=== PATIENT | female | born 1970 | race Caucasian/White ===

== ENCOUNTER 2017-08-23 04:14 | Emergency (ER) | payer MEDICAID ==
[~2017-08-23] VITALS: Ht 165.1 cm; Wt 71.7 kg
[2017-08-23 04:15] VITALS: BP_SYST 101
[2017-08-23] MEDS ORDERED: IBUPROFEN 800 MG TABLET PO ONE (05:00)
[2017-08-23 06:04] VITALS: BP_SYST 101
== END 2017-08-23 06:04 | disposition home or self-care (01) ==
LOC: SED 04:14
DX: S93.401A Sprain of unspecified ligament of right ankle, initial encounter (principal); X58.XXXA Exposure to other specified factors, initial encounter; Y93.89 Activity, other specified; Y92.89 Other specified places as the place of occurrence of the external cause; Y99.8 Other external cause status
CPT/HCPCS: 99284

== ENCOUNTER 2018-12-29 12:43 | Inpatient (IN) | payer MEDICAID ==
[~2018-12-29] VITALS: Ht 165.1 cm; Wt 77.1 kg
[2018-12-29 12:43] VITALS: BP_SYST 136
[2018-12-29] MEDS ORDERED: ONDANSETRON HCL 4 MG/2 ML VIAL IVP ONE ×2 (13:30→18:00)
[2018-12-29] MEDS ORDERED: NACL 0.9% 1,000 ML IV ONE (13:30)
[2018-12-29] MEDS ORDERED: KETOROLAC TROMETHAMINE 30 MG VIAL IVP ONE ×2 (13:30→18:25)
[2018-12-29 13:57] LABS: BASOPHILS # (AUTO) 0.1 K/uL (0.0-0.2); BASOPHILS % (AUTO) 0.4 % (0.0-2.0); EOSINOPHILS # (AUTO) 0.1 K/uL (0.0-0.4); EOSINOPHILS % (AUTO) 0.3 % (0.0-4.0); HEMATOCRIT 37.4 % (36-48); HEMOGLOBIN 12.1 g/dL (12.0-16.0); LYMPHOCYTES # (AUTO) 0.8 K/uL (1.0-5.5); LYMPHOCYTES % (AUTO) 4.3 % (20.5-51.5); MEAN CORPUSCULAR HEMOGLOBIN 27 pg (27-31); MEAN CORPUSCULAR HGB CONC 33 % (32-36); MEAN CORPUSCULAR VOLUME 82 fL (79.0-98.0); MONOCYTES # (AUTO) 0.5 K/uL (0.0-1.0); MONOCYTES % (AUTO) 2.9 % (1.7-9.3); NEUTROPHILS # (AUTO) 16.7 K/uL (1.8-7.7); NEUTROPHILS % (AUTO) 92.1 % (40.0-70.0); PLATELET COUNT (AUTO) 325 K/uL (130-430); RED BLOOD CELL COUNT(AUTO) 4.55 MIL/uL (4.2-6.2); RED CELL DISTRIBUTION WIDTH 14.8 % (9.0-15.0); WHITE BLOOD COUNT (AUTO) 18.1 K/uL (4.8-10.8)
[2018-12-29 14:11] LABS: CALCIUM 9.8 mg/dL (8.4-11.0); CREATININE 0.81 mg/dL (0.55-1.30); POTASSIUM 3.1 mmol/L (3.5-5.1)
[2018-12-29 14:13] LABS: ALBUMIN 3.8 g/dL (3.4-4.8); TOTAL BILIRUBIN 0.6 mg/dL (0.0-1.0)
[2018-12-29 15:14] LABS: BILIRUBIN,URINE NEGATIVE (NEGATIVE); BLOOD, URINE 2+ (NEGATIVE); CLARITY/URINE HAZY (CLEAR); COLOR,URINE YELLOW (YELLOW); GLUCOSE,URINE NEGATIVE (NEGATIVE); KETONES,URINE 2+ (NEGATIVE); LEUKOCYTE ESTERASE ,URINE TRACE (NEGATIVE); NITRITE, URINE NEGATIVE (NEGATIVE); PH,URINE 6.5 (5.0-8.0); PROTEIN URINE NEGATIVE (NEGATIVE); UROBILINOGEN,URINE 0.2 (0.2-1.0)
[2018-12-29 15:26] LABS: BACTERIA,URINE MODERATE /HPF (None Seen); WBC,URINE 0-3 /HPF (0-3)
[2018-12-29 15:27] LABS: MUCUS,URINE None Seen /LPF (None Seen)
[2018-12-29] MEDS ORDERED: cefOXitin SODIUM 1 GM in D5W 50 ML IV ONE (16:30)
[2018-12-29] MEDS ORDERED: MORPHINE 4 MG/ML INJ. SYRINGE IVP ONE (18:00)
[2018-12-29] MEDS ORDERED: NS 1000 ML IV.SOLN IV ONE (18:25)
[2018-12-29] MEDS ORDERED: PHENYLEPHRINE HCL 10 MG/ML VIAL (NEOSYNEPHRINE) IV ONE (18:25)
[2018-12-29] MEDS ORDERED: MIDAZOLAM HCL 5 MG/5 ML VIAL IVP ONE (18:25)
[2018-12-29] MEDS ORDERED: SEVOFLURANE 15 MIN GAS INH ONE (18:25)
[2018-12-29] MEDS ORDERED: ROCURONIUM BROMIDE 10 MG/ML (ZEMURON) IV ONE (18:25)
[2018-12-29] MEDS ORDERED: WATER FOR IRRIGATION,STERILE 1,000 ML IRRIG.SOLN IR ONE (18:25)
[2018-12-29] MEDS ORDERED: LIDOCAINE 2%, 20 ML MDV INJ ONE (18:25)
[2018-12-29] MEDS ORDERED: PROPOFOL 200MG/ 20ML VIAL (DIPRIVAN) IV ONE (18:25)
[2018-12-29] MEDS ORDERED: GLYCOPYRROLATE 0.2 MG/ML VIAL IJ ONE (18:25)
[2018-12-29] MEDS ORDERED: fentaNYL CITRATE/PF 100 MCG/2 ML AMP IVP ONE (18:25)
[2018-12-29] MEDS ORDERED: LR 1,000 ML IV.SOLN IV ONE ×2 (18:25)
[2018-12-29] MEDS: NACL 0.9% 1,000 ML IV SCH (19:47)
[2018-12-29] MEDS: CEFAZOLIN 1 GM IVPB PREMIX 50 ML IV SCH (20:00)
[2018-12-29] MEDS ORDERED: ONDANSETRON HCL 4 MG/2 ML VIAL IVP PRN ×2 (20:00→21:15)
[2018-12-29] MEDS ORDERED: HYDROmorphone 1 MG INJ. 1 MG/ML AMPUL IVP PRN (20:00)
[2018-12-29] MEDS: metroNIDAZOLE 500 mg/NS 100 ML IV SCH (20:00)
[2018-12-29 21:12] VITALS: BP_SYST 100
[2018-12-29] MEDS ORDERED: PIPERACILLIN/TAZO 3.375 GM in NS 50 ML IV ONE (21:15)
[2018-12-29] MEDS ORDERED: POTASSIUM CHLORIDE 40 MEQ, LIDOCAINE JECT 2% PF 100 MG 50 MG in NS 250 ML IV ONE (21:15)
[2018-12-29] MEDS ORDERED: MORPHINE 4 MG/ML INJ. SYRINGE IVP PRN ×2 (21:15)
[2018-12-29] MEDS ORDERED: LR 1,000 ML IV ONE (21:15)
[2018-12-29] MEDS ORDERED: ACETAMINOPHEN 650 MG SUPP.RECT RC PRN (21:15)
[2018-12-29] MEDS ORDERED: KCL 40 mEq in 100 mL (PREMIX) 100 ML IV ONE (22:50)
[2018-12-29] MEDS ORDERED: LIDOCAINE JECT 2% PF 100 MG/5ML SYRINGE ONE (22:56)
[2018-12-29] MEDS ORDERED: CEFAZOLIN 1 GM IVPB PREMIX 100 ML IV ONE (23:01)
[2018-12-29] MEDS ORDERED: metroNIDAZOLE 500 mg/NS 200 ML IV ONE (23:01)
[2018-12-29] MEDS ORDERED: HYDROmorphone 1 MG INJ. 1 MG/ML AMPUL ONE (23:14)
[2018-12-29 23:25] VITALS: BP_SYST 104
[2018-12-29 23:36] VITALS: BP_SYST 104
[2018-12-30 00:31] VITALS: BP_SYST 108
[2018-12-30] MEDS ORDERED: PIPERACILLIN/TAZOBACTAM 3.375 GM/VIAL (ZOSYN) IV ONE (00:39)
[2018-12-30] MEDS: CEFAZOLIN 1 GM IVPB PREMIX 50 ML IV SCH (06:02)
[2018-12-30] MEDS: metroNIDAZOLE 500 mg/NS 100 ML IV SCH (06:04)
[2018-12-30 06:22] LABS: CALCIUM 8.1 mg/dL (8.4-11.0); CREATININE 0.67 mg/dL (0.55-1.30); POTASSIUM 3.8 mmol/L (3.5-5.1)
[2018-12-30 06:29] LABS: ALBUMIN 2.7 g/dL (3.4-4.8); TOTAL BILIRUBIN 0.7 mg/dL (0.0-1.0)
[2018-12-30 06:36] LABS: BASOPHILS % (AUTO) 0.3 % (0.0-2.0); EOSINOPHILS % (AUTO) 0.4 % (0.0-4.0); HEMATOCRIT 30.1 % (36-48); HEMOGLOBIN 9.8 g/dL (12.0-16.0); LYMPHOCYTES # (AUTO) 0.8 K/uL (1.0-5.5); LYMPHOCYTES % (AUTO) 7.5 % (20.5-51.5); MEAN CORPUSCULAR HEMOGLOBIN 27 pg (27-31); MEAN CORPUSCULAR HGB CONC 33 % (32-36); MEAN CORPUSCULAR VOLUME 83 fL (79.0-98.0); MONOCYTES # (AUTO) 0.7 K/uL (0.0-1.0); NEUTROPHILS # (AUTO) 9.3 K/uL (1.8-7.7); NEUTROPHILS % (AUTO) 85.8 % (40.0-70.0); PLATELET COUNT (AUTO) 221 K/uL (130-430); RED BLOOD CELL COUNT(AUTO) 3.64 MIL/uL (4.2-6.2); WHITE BLOOD COUNT (AUTO) 10.8 K/uL (4.8-10.8)
[2018-12-30 08:00] VITALS: BP_SYST 100
[2018-12-30] MEDS: ACETAMINOPHEN 325 MG TABLET PO PRN ×2 (10:52→18:01)
[2018-12-30] MEDS: NACL 0.9% 1,000 ML IV SCH ×2 (11:11→14:54)
[2018-12-30] MEDS ORDERED: AMOX-426 PO (13:26)
[2018-12-30] MEDS ORDERED: L.RH1CAP PO (13:27)
[2018-12-30 14:05] VITALS: BP_SYST 104
[2018-12-30 16:05] VITALS: BP_SYST 94
[2018-12-30 16:16] VITALS: BP_SYST 99
[2018-12-30 16:18] VITALS: BP_SYST 99
[2018-12-31 04:19] LABS: CHLAMYDIA TRACHOMATIS NAA Negative (Negative); NEISSERIA GONORRHOEAE NAA Negative (Negative)
== END 2018-12-30 21:27 | disposition home or self-care (01) | DRG 710 ==
LOC: SED 12:43 → SMU 21:13
PROVIDERS: ADMIT Internal Medicine; ATTEND Internal Medicine
PROC: 0DTJ4ZZ Resection of Appendix, Percutaneous Endoscopic Approach (ICD-10-PCS; principal; 2018-12-29 19:00)
DX: A41.9 Sepsis, unspecified organism (principal); E87.1 Hypo-osmolality and hyponatremia; K35.891 Other acute appendicitis without perforation, with gangrene; E87.6 Hypokalemia
CPT/HCPCS: 36415; 80053; 81000-TC; 83690-TC; 85025; 87070-TC; 87075-TC; 87081; 87086; 87186-TC; 87491; 87591; 88304; 94010; 96361; 96374; 96375; 96376; 99285; C1727; J0690; J1170; J1885; J2001; J2250; J2270; J2370; J2405; J2543; J2704; J3010; J3480; J3490; J7030; J7050; J7120

== ENCOUNTER 2019-04-03 12:36 | Emergency (ER) | payer MEDICAID ==
[~2019-04-03] VITALS: Ht 165.1 cm; Wt 76.2 kg
[~2019-04-03 12:36] MED LIST: AMOX-426 PO; L.RH1CAP PO
[2019-04-03 12:52] VITALS: BP_SYST 99
[2019-04-03 14:24] LABS: BASOPHILS # (AUTO) 0.1 K/uL (0.0-0.2); BASOPHILS % (AUTO) 0.7 % (0.0-2.0); EOSINOPHILS # (AUTO) 0.5 K/uL (0.0-0.4); EOSINOPHILS % (AUTO) 6.8 % (0.0-4.0); HEMATOCRIT 37.3 % (36-48); HEMOGLOBIN 12.4 g/dL (12.0-16.0); LYMPHOCYTES # (AUTO) 1.4 K/uL (1.0-5.5); LYMPHOCYTES % (AUTO) 17.2 % (20.5-51.5); MEAN CORPUSCULAR HEMOGLOBIN 28 pg (27-31); MEAN CORPUSCULAR HGB CONC 33 % (32-36); MEAN CORPUSCULAR VOLUME 84 fL (79.0-98.0); MONOCYTES # (AUTO) 0.5 K/uL (0.0-1.0); MONOCYTES % (AUTO) 5.9 % (1.7-9.3); NEUTROPHILS # (AUTO) 5.5 K/uL (1.8-7.7); NEUTROPHILS % (AUTO) 69.4 % (40.0-70.0); PLATELET COUNT (AUTO) 246 K/uL (130-430); RED BLOOD CELL COUNT(AUTO) 4.42 MIL/uL (4.2-6.2); RED CELL DISTRIBUTION WIDTH 17.7 % (9.0-15.0)
[2019-04-03 14:30] LABS: ANION GAP 10 (5-15); CALCIUM 8.8 mg/dL (8.4-11.0); CHLORIDE 106 mmol/L (98-107); CREATININE 0.78 mg/dL (0.55-1.30); GLUCOSE 104 mg/dL (70-99); POTASSIUM 3.9 mmol/L (3.5-5.1); SODIUM SERUM 140 mmol/L (136-145); UREA NITROGEN, BLOOD 16 mg/dL (8-21)
[2019-04-03 14:33] LABS: GFR AFRICAN AMERICAN 101 mL/min (>90)
[2019-04-03 14:38] LABS: ALANINE AMINOTRANSFERASE 26 U/L (12-78); ALBUMIN 2.8 g/dL (3.4-4.8); ASPARTATE AMINOTRANSFERASE 17 U/L (10-37)
[2019-04-03 15:04] LABS: TOTAL BILIRUBIN 0.3 mg/dL (0.0-1.0)
[2019-04-03 15:09] VITALS: BP_SYST 108
== END 2019-04-03 15:09 | disposition home or self-care (01) ==
LOC: SED 12:36
DX: H10.9 Unspecified conjunctivitis (principal); R07.89 Other chest pain; Z79.899 Other long term (current) drug therapy
CPT/HCPCS: 36415; 71045; 80053; 84484; 85025; 93005; 99284

== ENCOUNTER 2023-11-03 09:56 | Day surgery (SDC) | payer MEDICAID ==
[~2023-11-03] VITALS: Ht 165.1 cm; Wt 56.7 kg
[2023-11-03 11:00] VITALS: O2SAT 100
[2023-11-03] MEDS ORDERED: SIMETHICONE 40 MG/0.6 ML ML ONE (11:02)
[2023-11-03] MEDS ORDERED: BENZOCAINE 20% 0.5mL UD SPRAY MM ONE (11:02)
[2023-11-03] MEDS ORDERED: MEPERIDINE 100 MG INJ. 100 MG/ML VIAL ONE (11:03)
[2023-11-03] MEDS ORDERED: MIDAZOLAM HCL 5 MG/5 ML VIAL ONE ×2 (11:03→11:24)
[2023-11-03] MEDS ORDERED: ONDANSETRON HCL 4 MG/2 ML VIAL ONE (11:39)
[2023-11-03] MEDS ORDERED: HYDROmorphone 1 MG/ML INJ. CARTRIDGE ONE (14:16)
[2023-11-03 15:39] VITALS: BP_SYST 115; PULSE 98; RESP 14
== END 2023-11-03 12:20 | disposition home or self-care (01) ==
LOC: SDS 09:56 → SMU 10:03 → SDS 12:20
PROVIDERS: ATTEND Internal Medicine
DX: K58.9 Irritable bowel syndrome, unspecified (principal); D12.4 Benign neoplasm of descending colon; K63.89 Other specified diseases of intestine; K29.70 Gastritis, unspecified, without bleeding; R19.5 Other fecal abnormalities; R19.4 Change in bowel habit; K21.9 Gastro-esophageal reflux disease without esophagitis; K44.9 Diaphragmatic hernia without obstruction or gangrene; K64.8 Other hemorrhoids; R10.9 Unspecified abdominal pain; F41.9 Anxiety disorder, unspecified; F32.A Depression, unspecified; Z98.84 Bariatric surgery status; Z98.891 History of uterine scar from previous surgery; Z90.89 Acquired absence of other organs; Z98.890 Other specified postprocedural states; Z80.0 Family history of malignant neoplasm of digestive organs
CPT/HCPCS: 43249; 43239; 99152; 45380; 45385; 88305; 88312; 88313; 99153; G0378; J2250; J2405; J1170; J2175

== ENCOUNTER 2024-05-10 09:02 | Day surgery (SDC) | payer OTHER ==
[~2024-05-10] VITALS: Ht 165.1 cm; Wt 66.7 kg
[2024-05-10] MEDS ORDERED: BENZOCAINE 20% 0.5mL UD SPRAY MM ONE (09:32)
[2024-05-10] MEDS ORDERED: MEPERIDINE 100 MG INJ. 100 MG/ML VIAL ONE (09:33)
[2024-05-10] MEDS ORDERED: MIDAZOLAM HCL 5 MG/5 ML VIAL ONE (09:33)
[2024-05-10 09:55] VITALS: O2SAT 98
[2024-05-10] MEDS ORDERED: DIPHENHYDRAMINE INJ 50 MG/ML VIAL ONE (09:56)
[2024-05-10] MEDS ORDERED: ONDANSETRON HCL 4 MG/2 ML VIAL ONE (10:13)
[2024-05-10 13:04] VITALS: BP_SYST 99; PULSE 72; RESP 16
== END 2024-05-10 11:26 | disposition home or self-care (01) ==
LOC: SDS 09:02 → SMU 09:09 → SDS 11:26
PROVIDERS: ATTEND Internal Medicine
DX: K21.9 Gastro-esophageal reflux disease without esophagitis (principal); K29.50 Unspecified chronic gastritis without bleeding; K22.2 Esophageal obstruction; F41.9 Anxiety disorder, unspecified; F32.A Depression, unspecified; Z98.891 History of uterine scar from previous surgery; Z98.84 Bariatric surgery status; Z98.890 Other specified postprocedural states; Z79.899 Other long term (current) drug therapy; Z80.0 Family history of malignant neoplasm of digestive organs
CPT/HCPCS: 43249; 88305; 88312; 88313; 99152; 43239; G0378; J1200; J2250; J2405; J2175